=== PATIENT | male | born 1945 | race Caucasian/White ===

== ENCOUNTER → 2018-10-18 13:44 | Outpatient (CLI) | payer MEDICARE, OTHER, SELFPAY ==
--- NOTE | 2018-10-18 | DI.ECHO.S_ITS ---
[facility] +---------+ [facility] +---------+ : : [address] : [address] : : : : [id number] : : : : Phone: [phone] Echocardiogram Report + + :Name: MONICA SANTOS Study Date: 10/18/2018 Height: 70 in : :[facility] Exam Location: [facility] Weight: 179 lb : : Gender: Male BSA: 2.0 m2 : :: 1945 Age: 72 yrs BP: 142/80 mmHg: :Reason For Study: Aortic Valve Replacement : :Ordering Physician: Дмитрий : :David Emmanuel Performed By: Chana Tobias : :Referring: ДМИТРИЙ DORMAN : + + Interpretation Summary The left ventricle is normal in size. Left ventricular ejection fraction is estimated to be 70 +/- 5%. The right ventricle is grossly normal size. The right ventricular systolic function is normal. There is a bioprosthetic aortic valve. The prosthetic aortic valve is well-seated. The prosthetic aortic valve is not well visualized. The peak aortic velocity is 1.9 m/sec. The aortic valve mean gradient is 7 mmHg. The peak aortic velocity on the previous exam was 1.72 m/sec. There is no hemodynamically significant valvular aortic stenosis. The ascending aorta is moderately enlarged. 4.5 cm in diameter. In September 2017 it was 4.8 cm. Procedure: A two-dimensional transthoracic echocardiogram with color flow and Doppler was performed. The apical views were difficult to obtain and are suboptimal in quality. Comparison is made with the echocardiogram of 09/17/2017. The study quality was technically difficult. The patient was in normal sinus rhythm during the exam. Left Ventricle: The left ventricle is normal in size. Left ventricular wall thickness is mildly increased. Proximal septal thickening is noted. There is no echo evidence for significant left ventricular outflow tract obstruction. Left ventricular ejection fraction is estimated to be 70 +/- 5%. Septal motion is consistent with post-operative state. MV E/A: 1.0 Med Peak E' John: 6.8 cm/sec E/E' med: 12.0. Right Ventricle: The right ventricle is grossly normal size. The right ventricular systolic function is normal. Atria: Both atria are normal in size. Both atria have remained unchanged in size since the prior echo exam. The interatrial septum is intact with no evidence for an atrial septal defect. Mitral Valve: The mitral valve leaflets are mildly calcified. There is mild mitral annular calcification. There is trace mitral regurgitation. Aortic Valve: There is a bioprosthetic aortic valve. The prosthetic aortic valve is well-seated. The prosthetic aortic valve is not well visualized. The peak aortic velocity is 1.9 m/sec. The aortic valve mean gradient is 7 mmHg. The peak aortic velocity on the previous exam was 1.72 m/sec. There is no hemodynamically significant valvular aortic stenosis. There is trace aortic regurgitation. Compared to the prior echo study, there has been no change in the severity of aortic regurgitation. Tricuspid Valve: The tricuspid valve is not well visualized, but is grossly normal. The right ventricular systolic pressure is estimated to be at least 23 mmHg based on an estimated right atrial pressure of 3 mm Hg. There is trace tricuspid regurgitation. There has been no significant change since the previous study. Pulmonic Valve: The pulmonic valve is not well seen, but is grossly normal. There is trace pulmonic regurgitation. Great Vessels: The ascending aorta is moderately enlarged. The IVC is of normal diameter and collapses greater than 50% with a sniff. This suggests a low right atrial pressure of 3 mm Hg. Pericardium/ Pleura There is an anterior echo-free space consistent with a fat pad. There is no pericardial effusion. There is no pleural effusion. MMode/2D Measurements & Calculations LVIDd: 5.2 cm LVOT diam: 2.3 cm LVIDs: 2.5 cm asc Aorta Diam: 4.5 cm FS: 52.6 % IVSd: 1.2 cm LVPWd: 1.2 cm LV chauhan. diameter/BSA (cm/m^2): 2.6 LV sys. diameter/BSA (cm/m^2): 1.2 LA A2 area: 18.4 cm2 RA long axis: 4.6 cm LA A4 area: 18.0 cm2 RA area: 12.4 cm2 LA length (vol): 4.8 cm RA vol: 28.5 ml LA vol: 58.6 ml RA : 14.3 ml/m2 LA vol index: 29.4 ml/m2 TAPSE: 2.1 cm Doppler Measurements & Calculations Ao V2 max: 193.7 cm/sec LVOT Max John: 68.5 cm/sec Ao V2 mean: 123.7 cm/sec LV V1 max P.9 mmHg Ao max P.0 mmHg LV V1 VTI: 15.0 cm Ao mean P.1 mmHg GUANAKITO(I,D): 1.8 cm2 Ao V2 VTI: 35.7 cm GUANAKITO(V,D): 1.5 cm2 sev ratio: 0.42 GUANAKITO indexed to BSA (cm^2/m^2): 0.89 MV E max john: 82.1 cm/sec TR max john: 225.0 cm/sec MV A max john: 79.7 cm/sec TR max P.3 mmHg MV E/A: 1.0 PA V2 max: 77.8 cm/sec Med Peak E' John: 6.8 cm/sec PA V2 mean: 51.7 cm/sec E/E' med: 12.0 PA mean P.2 mmHg Lat Peak E' John: 7.1 cm/sec PA pr(Accel): 4.1 mmHg E/E' lat: 11.6 E/e' average: 11.8 MV dec time: 0.24 sec SV(LVOT): 63.4 ml Reading Physician:CAT
== END ==
PROVIDERS: Visit Provider Internal Medicine Cardiovascular Disease
DX: I77.810 Thoracic aortic ectasia (principal); Z95.2 Presence of prosthetic heart valve
CPT/HCPCS: 93306

== ENCOUNTER → 2018-11-28 09:39 | Outpatient (CLI) | payer MEDICARE, OTHER, SELFPAY ==
--- NOTE | 2018-11-28 | DI.US.S_ITS ---
PROCEDURE: US ABDOMEN COMPLETE INDICATIONS: ELEVATED LFT'S TECHNIQUE: Real-time scanning was performed of the abdominal and retroperitoneal organs, with image documentation. COMPARISON: None. FINDINGS: Liver: Liver is diffusely increased in echogenicity. No focal hepatic abnormalities identified. Normal hepatic size. Gallbladder: No gallstones identified. Normal gallbladder wall. No pericholecystic fluid. Negative sonographic Kaur sign. Biliary ducts: Intrahepatic bile ducts are non-dilated. Extrahepatic bile duct caliber measures 4.1 mm. Normal is 6-7 mm or less in diameter, or 10 mm or less post-cholecystectomy. Pancreas: Visualized portions of the pancreas are sonographically normal. Spleen: Spleen is normal in size and homogeneous in echotexture. Kidneys: Kidneys are normal in size and echotexture. Right kidney measures 12.4 cm long; left kidney measures 11.3 cm long. No hydronephrosis or nephrolithiasis. No solid masses. Left renal inferior pole cyst measuring 3.5 cm. Aorta: Visualized aorta is normal in caliber at less than 3 cm. Iliacs: Proximal common iliac arteries are normal in caliber at less than 2.5 cm. IVC: Intrahepatic inferior vena cava is patent. Miscellaneous: No free abdominal fluid. IMPRESSION: Increased hepatic echogenicity noted possibly related to hepatic steatosis but other sources of hepatocellular disease cannot be excluded. Recommend clinical correlation. Dictated by: Castillo GEORGES Interpreted: Kali Gomez MD on 11/28/2018 at 10:59 Approved by: Kali Gomez M.D. on 11/28/2018 at 14:19
[2018-11-28 11:40] LABS: Alanine Aminotransferase 70 IU/L (21-72); Albumin 4.3 g/dL (3.5-5.0); Albumin Globulin Ratio 1.6 (1.0-2.8); Alkaline Phosphatase 100 U/L (38-126); Aspartate Aminotransferase 58 IU/L (17-59); Bilirubin Total 0.6 mg/dL (0.2-1.3); Bilirubin Unconjugated 0.4 mg/dL (0.0-1.1); Globulin 2.7 g/dL (1.7-4.1); HEMOLYSIS < 15 (0-50)
== END ==
PROVIDERS: PCP Internal Medicine; Visit Provider Internal Medicine
DX: R94.5 Abnormal results of liver function studies (principal)
CPT/HCPCS: 36415; 76700; 80076

== ENCOUNTER 2018-12-21 11:32 | Day surgery (SDC) | payer MEDICARE, OTHER, SELFPAY ==
[2018-12-21] VITALS (8 sets, daily range): BP systolic 98–142; BP diastolic 56–81; PULSE 65–86; RESP 9–16; TEMP 36.4–36.5; O2SAT 93–99; BMI 26.1
--- NOTE | 2018-12-21 | PATH_ITS ---
[facility] Accession Number: [id number] . 01 Material submitted: . PART A: ASCENDING COLON POLYP X2 PART B: TRANSVERSE COLON POLYP PART C: SIGMOID COLON POLYP . 02 Diagnosis: A. Ascending Colon, Polyps x2, Biopsies: Tubular adenoma in one of two fragments. . B. Transverse Colon, Polyp, Biopsy: Tubular adenoma. . C. Sigmoid Colon, Polyp, Biopsy: Tubular adenoma. MRV/12/22/2018 . 02 Electronically signed: . Eli Briseno MD, Pathologist NPI- [id number] . 01 Gross description: . Received three formalin-filled containers, each labeled with the patient's name: . A. In a container labeled ascending colon polyp, the specimen consists of two 0.2-0.3 cm portions of tissue, entirely submitted in cassette A. B. In a container labeled transverse colon polyp, the specimen consists of four 0.2-0.3 cm portions of tissue, entirely submitted in cassette B. C. In a container labeled sigmoid colon polyp, the specimen consists of a 0.7 cm portion of tissue, entirely submitted in cassette C. ([id number]) /FRR . 02 Pathologist provided ICD-10: D12.2, D12.3, D12.5 . 02 CPT . 424518, 753539, 463183 Performed at: 01 [facility] [address] [facility], [place], [place] [id number] MD Casper Pedraza MD Phone: [phone] Performed at: 02 [facility] [address] [place], [place] [id number] MD Eli Briseno MD Phone: [phone]
--- NOTE | 2018-12-21 12:48 | PM.HP.1 ---
History of Present Illness Chief complaint: [id number] SCREENING COLONOSCOPY Patient History Social History household members: spouse Family & Social History Social History: household members spouse Meds Home Medications Medication Instructions Recorded Confirmed Type Lisinopril/HCTZ (PRINZIDE 07/22.5) 1 tab PO QDAY #0 tab 07/05/13 12/21/18 History atorvastatin [Lipitor] 40 mg PO HS #0 tab 07/05/13 12/21/18 History metoprolol succinate [Toprol XL] 50 mg PO QDAY #0 tab 07/05/13 12/21/18 History aspirin [Aspir-81] 81 mg PO DAILY 12/21/18 12/21/18 History Allergies Allergy/AdvReac Type Severity Reaction Status Date / Time Penicillins Allergy Intermediate HIVES Verified 12/21/18 12:14 Review of Systems Review of Systems All systems reviewed & are unremarkable except as noted in HPI and below Exam Vital Signs (past 8 hours): - 12/21/18 12:17 Temperature 97.7 F Pulse Rate 80 Respiratory Rate 16 Blood Pressure 133/81 Pulse Oximetry 97 Oxygen Delivery Method Room Air Narrative Exam Narrative: Awake alert oriented x3, pupils equal round reactive to light, lungs clear, heart regular rate rhythm, abdomen soft nontender nondistended, no lower extremity edema Assessment & Plan Assessment & Plan narrative: History of colon polyps screening colonoscopy
[2018-12-21] MEDS: SODIUM CHLORIDE 0.9% 1,000 ML 200 ML IV (12:51)
[2018-12-21] MEDS: MIDAZOLAM 5 MG/5 ML VIAL IV (13:49)
[2018-12-21] MEDS: fentaNYL 250 MCG/5 ML INJ IV (13:49)
--- NOTE | 2018-12-21 13:58 | PM.OP.ENDO ---
Operative Date/Time/Diagnoses Date of procedure: 12/21/18 Procedure & Clinicians Study performed: Colonoscopy with biopsy and snare polypectomy Moderate conscious sedation was administered by the endoscopy nurse and supervised by the endoscopist. The following parameters were monitored: Oxygen saturation, heart rate, blood pressure, and response to care. Sedation: 4 mg midazolam, 100 mcg fentanyl Indications: Colon cancer screening Procedure Notes Procedure in detail: Prior to the procedure, history and physical was performed, and patient medications and allergies were reviewed. Preprocedure nursing history and assessment was reviewed. Patient identification and proposed procedure were verified by the physician and nurse in the procedure room. The physical status of the patient was reassessed after the procedure. After informed consent was obtained including risks, benefits, and alternatives, the scope was passed under direct vision. Throughout the procedure, the patient's blood pressure, pulse, and oxygen saturations were monitored continuously. The colonoscope was introduced through the anus and advanced to the cecum as identified by the appendiceal orifice and ileocecal valve. The patient tolerated the procedure well. Bowel prep was deemed adequate to detect polyps greater than 5 mm. AMBER and perianal examinations were unremarkable. Retroflexion in the rectum revealed grade 2 internal hemorrhoids Many medium mouth diverticula noted in the sigmoid colon Two 3 mm sessile polyps removed from the ascending colon and retrieved with a Jumbo biopsy forceps A 4 mm sessile polyp removed from the transverse colon in piecemeal and retrieved with the Jumbo biopsy forceps A 5 mm sessile polyp removed from the sigmoid colon with cold snare Impression: Internal hemorrhoids Sigmoid colon diverticulosis Four polyps ranging in size from 3 to 5 mm removed from the sigmoid, transverse, and ascending colon Sedation minutes: 20 Complications: other (EBL minimal. No complications) Plan for aftercare: Follow-up pathology results Repeat colon at a date to be determined based on pathology results High-fiber diet Resume home medications Discharge home with escort
--- NOTE | 2018-12-21 14:15 | SUR.PHASEI ---
HOB elevated, slightly dizzy, states that he's tolerating it waking up. Juice given.
--- NOTE | 2018-12-21 14:28 | SUR.PHASEI ---
1424 To opd, bed down and locked, report given, Awake/drowsy, oriented.
== END 2018-12-21 14:50 | disposition home or self-care (01) ==
PROVIDERS: PCP Internal Medicine; Visit Provider Internal Medicine
PROC: 0DJD8ZZ Inspection of Lower Intestinal Tract, Via Natural or Artificial Opening Endoscopic (ICD-10-PCS; CPT 45378; principal; 2018-12-21 12:30)
DX: Z12.11 Encounter for screening for malignant neoplasm of colon (principal); K57.30 Diverticulosis of large intestine without perforation or abscess without bleeding; K64.1 Second degree hemorrhoids; D12.2 Benign neoplasm of ascending colon; D12.3 Benign neoplasm of transverse colon; D12.5 Benign neoplasm of sigmoid colon
CPT/HCPCS: 45385; 45380; 88305; J2250; J3010

== ENCOUNTER → 2019-08-04 15:39 | Outpatient (CLI) | payer MEDICARE, OTHER, SELFPAY ==
[2019-08-04 15:53] LABS: WBC Urine None Seen (0-5/HPF)
[2019-08-04 16:06] LABS: Appearance Urine UA CLOUDY; Bilirubin Urine UA NEGATIVE (NEGATIVE); Color Urine UA YELLOW; Glucose Urine UA NEGATIVE (Negative); Ketones Urine UA NEGATIVE (NEGATIVE); Leukocyte Esterase Urine UA NEGATIVE (NEGATIVE); Nitrite Urine UA NEGATIVE (Negative); Occult Blood Urine UA TRACE-INTACT (Negative); Protein Urine UA NEGATIVE (Negative); Urobilinogen Urine UA 0.2 E.U./dL (0.2)
[2019-08-04 16:16] LABS: Amorphous Sediment Urine 1+; Bacteria Urine Moderate (10-30); Culture Indicated Urine Cult Not Indicated; RBC Urine 0-1/HPF (0-5/HPF)
[2019-08-04 17:27] LABS: Prostate Specific Antigen Scrn 5.28 ng/mL (0.1-4.0)
== END ==
PROVIDERS: PCP Internal Medicine; Visit Provider Internal Medicine
DX: Z12.5 Encounter for screening for malignant neoplasm of prostate (principal); R39.198 Other difficulties with micturition
CPT/HCPCS: 36415; 81001; G0103

== ENCOUNTER 2019-08-17 01:45 | Emergency (ER) | payer MEDICARE, OTHER, SELFPAY ==
--- NOTE | 2019-08-17 01:47 | ED_ITS ---
HPI - General Adult General Chief complaint: Urogenital-Male Stated complaint: thinks he is passing a kidney stone Time Seen by Provider: 08/17/19 01:46 Source: patient Mode of arrival: Family Vehicle Limitations: no limitations History of Present Illness HPI narrative: 73-year-old male here for evaluation of left sided flank pain radiating around to his left abdomen. Patient states that it started when it woke him up from sleep just prior to arrival here in the emergency department. Patient states that he had a kidney stone approximately 25 years ago and this feels similar to that however the prior kidney stone was on his right. No vomiting. He states that this time it is not as bad as the last time he had the stone. Has had some urinary hesitancy and frequency. No pain with urination. No change in bowel habits. No fevers. Related Data Home Medications Medication Instructions Recorded Confirmed Lisinopril/HCTZ (PRINZIDE 07/22.5) 1 tab PO QDAY #0 tab 07/05/13 12/21/18 atorvastatin [Lipitor] 40 mg PO HS #0 tab 07/05/13 12/21/18 metoprolol succinate [Toprol XL] 50 mg PO QDAY #0 tab 07/05/13 12/21/18 aspirin [Aspir-81] 81 mg PO DAILY 12/21/18 12/21/18 Allergies Allergy/AdvReac Type Severity Reaction Status Date / Time Penicillins Allergy Intermediate HIVES Verified 12/21/18 12:14 Review of Systems Constitutional Constitutional: Denies fever(s) Cardiovascular Cardiovascular: Denies chest pain and Denies dyspnea Respiratory Respiratory: Denies dyspnea Gastrointestinal Gastrointestinal: Denies abdominal pain, Denies nausea and Denies vomiting Genitourinary Genitourinary: Reports flank pain (Left), Reports urinary frequency and Reports urinary hesitancy Musculoskeletal Musculoskeletal: Denies myalgias and Denies arthralgias Integumentary/Breasts Skin/Breast: Denies lesions and Denies rash Neurologic Neurologic: Denies behavioral changes Psychiatric Psychiatric: Denies behavioral changes Hematologic/Lymphatic Hematologic/Lymphatic: Denies easy bleeding and Denies easy bruising Patient History Medical History Hypertension (Acute) Social History household members: spouse Smoking Status: Former smoker Exam Initial Vital Signs Initial Vital Signs: Vital Signs Temperature 98.5 F 08/17/19 01:55 Pulse Rate 71 08/17/19 01:55 Respiratory Rate 16 08/17/19 01:55 Blood Pressure 147/74 H 08/17/19 01:55 Pulse Oximetry 97 08/17/19 01:55 Const General: cooperative and comfortable Orientation: alert and awake HENMT Head: normal to inspection and normocephalic Resp Effort & Inspection: normal respiratory effort Auscultation: clear to auscultation bilaterally Cardio Rate: regular rate Rhythm: regular rhythm GI Inspection: non-distended Palpation: soft and No firm Skin Lesions: no lesions Rashes: no rashes Neuro General: alert and awake Cognition: normal cognition Speech: speech normal Extrem Other: Right [id number] amputation Psych Appearance: grossly normal and well kempt Course Orders Ordered: ED Orders 08/17/19 01:50 Basic Metabolic Panel Stat Complete Blood Count AUTO DIFF Stat 08/17/19 02:11 CT kidney ureter bladder (KUB) Stat 08/17/19 03:50 Lactate (Lactic Acid) Stat Discontinued Medications Hydromorphone HCl (Dilaudid) 1 mg IV NOW ONE Stop: 08/17/19 02:16 Last Admin: 08/17/19 02:19 Dose: 1 mg Documented by: OSCAR Lidocaine HCl 5.9 ml/ Sodium (Chloride) 55.9 mls @ 335.4 mls/hr IV NOW ONE Stop: 08/17/19 02:11 Last Infusion: 08/17/19 02:55 Dose: 0 mls/hr Documented by: Admin: 08/17/19 02:20 Dose: 335.4 mls/hr Documented by: OSCAR Ketorolac Tromethamine (Toradol) 30 mg IV NOW ONE Stop: 08/17/19 02:11 Last Admin: 08/17/19 02:20 Dose: 30 mg Documented by: OSCAR Ondansetron HCl (Zofran) 4 mg IV NOW ONE Stop: 08/17/19 02:16 Last Admin: 08/17/19 02:20 Dose: 4 mg Documented by: OSCAR Vital Signs Vital signs: Vital Signs - 8 hr 08/17/19 01:55 08/17/19 02:40 Temperature 98.5 F Pulse Rate 71 62 Respiratory Rate 16 13 Blood Pressure 147/74 H Blood Pressure [Right Arm] 132/52 L Pulse Oximetry 97 93 Medical Decision Making Lab Data Lab results reviewed: Yes I reviewed the patient's lab results. Result diagrams: 08/17/19 01:50 08/17/19 01:50 Labs: Lab Results 08/17/19 08/17/19 08/17/19 Range/Units 01:50 01:50 03:50 WBC 9.5 (4.5-11.0) X10^3/uL RBC 5.05 (4.5-5.9) X10^6/uL Hgb 16.6 (13.5-17.5) g/dL Hct 47.2 (41-53) % MCV 93.5 (80-100) fL MCH 32.8 (26-34) PG MCHC 35.1 (30-36) % RDW 14.0 (11.6-14.8) % Plt Count 185 (150-400) X10^3/uL Neut % (Auto) 46.8 L (50-75) % Lymph % (Auto) 42.3 H (25-40) % Hartley % (Auto) 7.2 (3-14) % Eos % (Auto) 3.1 (2-4) % Baso % (Auto) 0.6 (0-2) % Neut # (Auto) 4500 (9473-6490) /uL Lymph # (Auto) 4000 (8750-5605) /uL Hartley # (Auto) 700 (0-900) /uL Eos # (Auto) 300 (0-450) /uL Baso # (Auto) 100 (0-100) /uL Sodium 138 (137-145) mmol/L Potassium 3.6 (3.4-5.1) mmol/L Chloride 97 L (98-107) mmol/L Carbon Dioxide 27 (22-32) mmol/L BUN 19 (9-20) mg/dL Creatinine 0.90 (0.66-1.25) mg/dL Estimated GFR > 60.0 (>60) mL/min BUN/Creatinine Ratio 21.1 (6-22) Glucose 147 H (80-110) mg/dL Lactate 2.0 (0.7-2.1) mmol/L Calcium 10.2 (8.4-10.2) mg/dL Imaging Data CT scan - abdomen: Radiologist's impression: Focal a hypodense to sigmoid colon with characteristics worrisome for early/developing colitis, possibly infectious versus inflammatory versus ischemic etiology. No evidence for perforation or obstruction Nonobstructing renal pelvic nephrolithiasis as described Intrapulmonary noncalcified reticular nodularity of unclear etiology and chronicity MDM Narrative Medical decision making narrative: Patient's history and physical exam is consistent with a kidney stone. He arrived with relatively minor symptoms however developed quite a bit of discomfort and nausea and vomiting during the exam. He was given medications for this would seems to take the pain completely away. We did discuss holding on a CT scan and checking a urine and kidney func tion given the fact that his symptoms are fairly consistent with a kidney stone. After this discussion and decision was made to perform a CT scan. The CT scan surprisingly did not show a specific left-sided ureteral stone. Did show potential problems with the sigmoid colon however this does not fit this patient's clinical presentation. The absence of the stone could be secondary to the fact that the patient is already passed at verses a stone that is small cannot be seen on the scan. Patient was sent home with return precautions and symptom treatment. He expressed understanding and agreement with plan Discharge Plan Departure Patient Disposition: Home Clinical Impression: Renal colic on left side Instructions: DI for Kidney Stones Activity Restrictions/Additional Instructions: Take the medication as needed as directed. Continue the rest of your medications as directed. Contact your primary provider for follow-up. Return to the emergency department for any new or worsening symptoms. Keep all of your scheduled medical appointments Prescriptions: No Action Lisinopril/HCTZ (PRINZIDE 07/22.5) 1 tab PO QDAY Qty: 0 RF: 0 atorvastatin [Lipitor] 40 MG tablet 40 mg PO HS Qty: 0 RF: 0 metoprolol succinate [Toprol XL] 50 MG tablet extended release 24 hr 50 mg PO QDAY Qty: 0 RF: 0 aspirin [Aspir-81] 81 mg Tablet,Delayed Release (Dr/Ec) 81 mg PO DAILY RF: 0 Referrals: Joaquim Zarate MD [Primary Care Provider] -
[2019-08-17 01:55] VITALS: BP 147/74; PULSE 71; RESP 16; TEMP 36.9; O2SAT 97; BMI 24.7
[2019-08-17 02:09] LABS: Add Manual Diff / Slide Review NO; Basophils Absolute Auto 100 /uL (0-100); Basophils Percent Auto 0.6 % (0-2); Eosinophils Absolute Auto 300 /uL (0-450); Eosinophils Percent Auto 3.1 % (2-4); Hematocrit 47.2 % (41-53); Hemoglobin 16.6 g/dL (13.5-17.5); Lymphocytes Absolute Auto 4000 /uL (1100-4500); Lymphocytes Percent Auto 42.3 % (25-40); Mean Corpuscular HGB Conc 35.1 % (30-36); Mean Corpuscular Hemoglobin 32.8 PG (26-34); Mean Corpuscular Volume 93.5 fL (80-100); Monocytes Absolute Auto 700 /uL (0-900); Monocytes Percent Auto 7.2 % (3-14); Neutrophils Absolute Auto 4500 /uL (1500-7000); Neutrophils Percent Auto 46.8 % (50-75); Platelet Count 185 X10^3/uL (150-400); Red Blood Cell Count 5.05 X10^6/uL (4.5-5.9); White Blood Cell Count 9.5 X10^3/uL (4.5-11.0)
--- NOTE | 2019-08-17 02:11 | DI.CT.S_ITS ---
PROCEDURE: CT KIDNEY URETER BLADDER (KUB) INDICATIONS: Left sided stone TECHNIQUE: Noncontrast 5 mm thick sections acquired from the diaphragms to the symphysis. 5 mm thick coronal and sagittal reformats were then performed. For radiation dose reduction, the following was used: automated exposure control, adjustment of mA and/or kV according to patient size. COMPARISON: None. FINDINGS: Image quality: Excellent. Lung bases: 4 mm groundglass nodule at the right lateral lower lobe. Lung bases are otherwise clear. Heart size is normal. Valvuloplasty changes are present. Urinary system: Both kidneys are normal in size. 3.3 cm left cortical cyst. A 2 mm nonobstructing right midpole calculus. No left intrarenal calculi. No hydronephrosis or perinephric fat stranding. Both ureters appear non-dilated throughout their expected courses. Punctate, 2 mm calcification at the left ureterovesicular junction. Bladder wall thickness is normal; no calcified bladder stones. Other solid organs: Liver is normal in size. Gallbladder is normal. Pancreas is normal in contours. Spleen is normal in size. 1.9 cm fat containing right adrenal nodule. No left adrenal nodule. Peritoneum and bowel: Unenhanced bowel loops demonstrate normal wall thickness and caliber. Moderate diverticula in the sigmoid colon with questionable adjacent fat stranding, not appreciably changed compared to the prior study. No free fluid or air. Nodes and vessels: No retroperitoneal or mesenteric adenopathy by size criteria. Aorta and inferior vena cava are normal in caliber. Heavy abdominal aortic calcification and common iliac artery calcification. Abdominal wall: No ventral hernias. Pelvis: No free pelvic fluid. A small fat containing left inguinal hernia. High riding left testicle. Tiny fat-containing right inguinal hernia.. Bones: No suspicious bony lesions. No vertebral body compression fractures. IMPRESSION: 1. 2 mm calcification at the left ureterovesicular junction. 2. No changes of significant obstructive uropathy. 3. 2 mm nonobstructing right intrarenal calcification. 4. Sigmoid diverticulosis with questionable adjacent fat stranding. Early diverticulitis is not excluded. 5. Heavy aorto biiliac atherosclerotic calcification. 6. 1.9 cm right adrenal adenoma. 7. 4 mm right lower lobe lung nodule. Followup chest CT in 6-12 months based on the patient risk factors is recommended. 8. Discrepancy between the final and preliminary report discussed with Dr. Rogel in the emergency room at 829 hours. Dictated by: Daylin Bellamy M.D. on 08/17/2019 at 8:12 Approved by: Daylin Bellamy M.D. on 08/17/2019 at 8:31
[2019-08-17 02:15] LABS: BUN Creatinine Ratio 21.1 (6-22); Blood Urea Nitrogen 19 mg/dL (9-20); Calcium 10.2 mg/dL (8.4-10.2); Carbon Dioxide 27 mmol/L (22-32); Chloride 97 mmol/L (98-107); Estimated Glomerular Filt Rate > 60.0 mL/min (>60); Glucose 147 mg/dL (80-110); HEMOLYSIS 26 (0-50); Potassium 3.6 mmol/L (3.4-5.1); Sodium 138 mmol/L (137-145)
[2019-08-17] MEDS: HYDROMORPHONE 1 MG INJ IV (02:19)
[2019-08-17] MEDS: LIDOCAINE 2% 5.9 ML in SODIUM CHLORIDE 0.9% 50 ML 335.4 ML IV (02:20)
[2019-08-17] MEDS: KETOROLAC 60 MG/2 ML VIAL 30 MG IV (02:20)
[2019-08-17] MEDS: ONDANSETRON 4 MG/2 ML INJ IV (02:20)
[2019-08-17 02:40] VITALS: BP 132/52; PULSE 62; RESP 13; O2SAT 93
[2019-08-17] MEDS: TRAMADOL 50 MG PREPACK 1 BOTTLE MISC (06:23)
[2019-08-17] MEDS: ONDANSETRON 4 MG ODT PREPACK 1 BOTTLE MISC (06:23)
[2019-08-17 06:30] VITALS: BP 128/81; PULSE 61; RESP 13; O2SAT 95
== END 2019-08-17 06:30 | disposition home or self-care (01) ==
PROVIDERS: Emergency Provider Emergency Medicine; PCP Internal Medicine
DX: N20.0 Calculus of kidney (principal); Z87.442 Personal history of urinary calculi; Z79.82 Long term (current) use of aspirin
CPT/HCPCS: 36415; 51798; 74176; 80048; 81003; 83605; 85025; 96365; 96375; 99283; 99284; J1170; J1885; J2405

== ENCOUNTER → 2019-12-22 11:54 | Outpatient (CLI) | payer MEDICARE, OTHER, SELFPAY ==
--- NOTE | 2019-12-22 | DI.ECHO.S_ITS ---
[place] [facility]---------+ [facility] +---------+ : : [address] : : : [address] : : : : [phone] : : : : Phone: [phone]+ Echocardiogram Report + + :Name: MONICA SANTOS Study Date: 12/22/2019 Height: 70 in : :[facility] Location: [facility] Weight: 183 lb : : Gender: Male BSA: 2.0 m2 : :: 1945 Age: 74 yrs BP: 140/80 mmHg: :Reason For Study: Aortic valve replacement - bioprosthetic : :Ordering Physician: : :Blayne Hernandez M.D. Performed By: Akilah Page : + + Interpretation Summary The study quality was technically difficult. Left ventricular ejection fraction is estimated to be 55%. There are no obvious focal wall motion abnormalities noted but poor endocardial definition reduces the sensitivity for the detection of such. There is a bioprosthetic aortic valve. The gradients through the prosthetic aortic valve are within the normal range for this type of valve. There is trace perivalvular regurgitation around the prosthetic aortic valve. The peak aortic velocity is 1.6 m/sec. The ascending aorta is moderately enlarged.(4.9cm) Procedure: A two-dimensional transthoracic echocardiogram with color flow and Doppler was performed. Comparison is made with the echocardiogram of 10/18/2018. The study quality was technically difficult. The patient was in normal sinus rhythm during the exam. Left Ventricle: The left ventricle is normal in size, wall thickness, and systolic function without any focal wall motion abnormalities. Left ventricular ejection fraction is estimated to be 55%. There are no obvious focal wall motion abnormalities noted but poor endocardial definition reduces the sensitivity for the detection of such. Right Ventricle: The right ventricle is normal in size and function. Atria: Both atria are normal in size. There is no Doppler evidence for an interatrial shunt. The thickening of interatrial septum suggests lipomatous hypertrophy. Mitral Valve: The mitral valve leaflets are mildly calcified. There is mild mitral annular calcification. There is trace mitral regurgitation. Aortic Valve: The aortic valve is not well visualized. There is a bioprosthetic aortic valve. The gradients through the prosthetic aortic valve are within the normal range for this type of valve. The prosthetic aortic valve is well-seated. There is trace perivalvular regurgitation around the prosthetic aortic valve. The peak aortic velocity is 1.6 m/sec. The peak aortic velocity on the previous exam was 1.9 m/sec. Tricuspid Valve: The tricuspid valve is normal in structure and function. There is a trace or physiologic amount of tricuspid regurgitation. Pulmonary artery pressures cannot be estimated because of the lack of a measurable TR jet velocity. Pulmonic Valve: The pulmonic valve is not well visualized. Great Vessels: The aortic root is not well visualized but is probably normal size. The ascending aorta is moderately enlarged. The pulmonary is not well visualized. The IVC is of normal diameter and collapses greater than 50% with a sniff. This suggests a low right atrial pressure of 3 mm Hg. Pericardium/ Pleura There is no pericardial effusion. There is no pleural effusion. MMode/2D Measurements & Calculations LVIDd: 4.9 cm LVOT diam: 2.3 cm LVIDs: 3.7 cm Ao root diam: 4.1 cm FS: 23.0 % asc Aorta Diam: 4.9 cm IVSd: 0.86 cm LVPWd: 0.82 cm LV chauhan. diameter/BSA (cm/m^2): 2.4 LV sys. diameter/BSA (cm/m^2): 1.9 LA A2 area: 20.4 cm2 RA long axis: 4.7 cm LA A4 area: 18.9 cm2 RA area: 18.5 cm2 LA length (vol): 5.5 cm RA vol: 61.7 ml LA vol: 59.7 ml RA : 30.7 ml/m2 LA vol index: 29.7 ml/m2 IVC diam: 1.9 cm RVD1 (basal): 3.5 cm RVD2 (mid): 3.2 cm Doppler Measurements & Calculations Ao V2 max: 162.4 cm/sec LVOT Max John: 83.4 cm/sec Ao V2 mean: 99.5 cm/sec LV V1 max P.8 mmHg Ao max P.5 mmHg LV V1 VTI: 18.6 cm Ao mean P.6 mmHg GUANAKITO(I,D): 2.5 cm2 Ao V2 VTI: 29.8 cm GUANAKITO(V,D): 2.1 cm2 sev ratio: 0.62 GUANAKITO indexed to BSA (cm^2/m^2): 1.2 MV E max john: 73.8 cm/sec PA V2 max: 64.9 cm/sec MV A max john: 97.2 cm/sec PA V2 mean: 47.0 cm/sec MV E/A: 0.76 PA mean P.97 mmHg Med Peak E' John: 7.1 cm/sec PA Accel Time: 0.15 sec E/E' med: 10.5 Lat Peak E' John: 6.7 cm/sec E/E' lat: 11.0 E/e' average: 10.7 MV dec time: 0.26 sec MV P1/2t: 78.0 msec MV P1/2t max john: 75.1 cm/sec SV(LVOT): 74.5 ml MVA(P1/2t): 2.8 cm2 Reading Physician:03:48 PM
== END ==
PROVIDERS: PCP Internal Medicine; Referring Provider Internal Medicine; Visit Provider Internal Medicine Cardiovascular Disease
DX: I77.89 Other specified disorders of arteries and arterioles (principal); Z95.2 Presence of prosthetic heart valve
CPT/HCPCS: 93306

== ENCOUNTER → 2020-02-16 08:50 | Outpatient (CLI) | payer MEDICARE, OTHER, SELFPAY ==
[2020-02-16 09:34] LABS: Alanine Aminotransferase 60 IU/L (<50); Albumin 4.4 g/dL (3.5-5.0); Albumin Globulin Ratio 1.5 (1.0-2.8); Alkaline Phosphatase 107 U/L (38-126); Aspartate Aminotransferase 55 IU/L (17-59); BUN Creatinine Ratio 26.7 (6-22); Bilirubin Total 0.7 mg/dL (0.2-1.3); Blood Urea Nitrogen 20 mg/dL (9-20); Calcium 9.8 mg/dL (8.4-10.2); Carbon Dioxide 29 mmol/L (22-32); Chloride 102 mmol/L (98-107); Cholesterol 153 mg/dL (140-199); Estimated Glomerular Filt Rate > 60.0 mL/min (>60); Glucose 136 mg/dL (80-110); HDL Cholesterol 35 mg/dL (40-60); HEMOLYSIS < 15 (0-50); LDL Cholesterol Calculated 68 mg/dL (<100); Potassium 4.1 mmol/L (3.4-5.1); Sodium 138 mmol/L (137-145); Total Protein 7.4 g/dL (6.3-8.2); Triglycerides 252 mg/dL (35-150)
[2020-02-16 09:40] LABS: Add Manual Diff / Slide Review NO; Basophils Absolute Auto 0 /uL (0-100); Basophils Percent Auto 0.6 % (0-2); Eosinophils Absolute Auto 200 /uL (0-450); Eosinophils Percent Auto 3.5 % (2-4); Hematocrit 44.8 % (41-53); Hemoglobin 15.6 g/dL (13.5-17.5); Lymphocytes Absolute Auto 2900 /uL (1100-4500); Mean Corpuscular HGB Conc 34.8 % (30-36); Mean Corpuscular Hemoglobin 32.7 PG (26-34); Monocytes Absolute Auto 600 /uL (0-900); Monocytes Percent Auto 9.6 % (3-14); Neutrophils Absolute Auto 2900 /uL (1500-7000); Neutrophils Percent Auto 43.3 % (50-75); Platelet Count 165 X10^3/uL (150-400); Red Blood Cell Count 4.77 X10^6/uL (4.5-5.9); White Blood Cell Count 6.8 X10^3/uL (4.5-11.0)
[2020-02-16 10:04] LABS: Prostate Specific Antigen 5.04 ng/mL (0.10-4.00)
== END ==
PROVIDERS: PCP Internal Medicine; Referring Provider Internal Medicine; Visit Provider Internal Medicine
DX: I10 Essential (primary) hypertension (principal); I70.209 Unspecified atherosclerosis of native arteries of extremities, unspecified extremity; E78.00 Pure hypercholesterolemia, unspecified; R97.20 Elevated prostate specific antigen [PSA]
CPT/HCPCS: 36415; 80053; 80061; 84153; 85025

== ENCOUNTER → 2020-09-11 10:34 | Outpatient (CLI) | payer MEDICARE, OTHER, SELFPAY ==
--- NOTE | 2020-09-11 11:03 | DI.CT.S_ITS ---
PROCEDURE: CT ABDOMEN PELVIS WO/W CON INDICATIONS: Other microscopic hematuria TECHNIQUE: Optional 5 mm thick noncontrast images acquired from the diaphragm to the symphysis pubis. After the administration of intravenous contrast, 5 mm thick images acquired from the diaphragm to the symphysis pubis after a 10-minute delay. 2 mm thick coronal and sagittal reformats were then performed of the kidneys and ureters. For radiation dose reduction, the following was used: automated exposure control, adjustment of mA and/or kV according to patient size. COMPARISON: [facility], CT, CT KIDNEY URETER BLADDER (KUB), 08/17/2019, 2:16. Outside Film, ECH, ECHOCARDIOGRAM COMPLETE, 12/22/2019, 11:59. FINDINGS: Image quality: Excellent. Lung bases: Lung bases are clear except for a 4 mm right lung base nodule previously identified in August of last year, without change. Heart size is normal. Urinary system: Both kidneys are normal in size, without hydronephrosis or nephrolithiasis on pre-contrast images. No perinephric fat stranding. There is normal bilateral renal enhancement. Renal calyces appear normal in morphology when filled with contrast. Opacified portions of both ureters demonstrate normal caliber. Bladder wall thickness is normal. No calcified bladder stones. Other solid organs: Liver is normal in size and enhancement. Gallbladder appears normal . Biliary system is non dilated. Pancreas enhances normally. Spleen is normal in size and enhancement. No adrenal nodules. Peritoneum and bowel: Bowel loops demonstrate normal wall thickness and caliber. No free fluid or air. Nodes and vessels: No retroperitoneal or mesenteric adenopathy by size criteria. Aorta and inferior vena cava are normal in size. Abdominal wall: No ventral hernias. Pelvis: No pathologic free pelvic fluid. No inguinal hernias or adenopathy. Bones: No suspicious bony lesions. No vertebral body compression fractures. IMPRESSION: Source of hematuria is not found. No urinary tract stone or evidence of renal cortical or urothelial neoplasm is seen. There are several scattered water density renal cortical cysts. A 4 mm nonspecific nodule at the right posterolateral lung base is stable over time, from 1 year ago. No follow-up recommended. Dictated by: Kali Gomez M.D. on 09/11/2020 at 11:47 Approved by: Kali Gomez M.D. on 09/11/2020 at 11:56
== END ==
PROVIDERS: PCP Internal Medicine; Referring Provider Internal Medicine; Visit Provider Urology
DX: R31.29 Other microscopic hematuria (principal); N28.1 Cyst of kidney, acquired
CPT/HCPCS: 74178; Q9967

== ENCOUNTER → 2020-11-08 09:57 | Outpatient (CLI) | payer MEDICARE, OTHER, SELFPAY ==
[2020-11-08] MEDS: COVID-19 VACC #1, MRNA(MOD) 100 MCG/0.5 ML VIAL IM (10:06)
== END ==
PROVIDERS: PCP Internal Medicine; Visit Provider Internal Medicine
DX: Z23 Encounter for immunization (principal)
CPT/HCPCS: 0011A; 91301

== ENCOUNTER → 2020-12-06 09:53 | Outpatient (CLI) | payer MEDICARE, OTHER, SELFPAY ==
[2020-12-06] MEDS: COVID-19 VACC #2, MRNA(MOD) 100 MCG/0.5 ML VIAL IM (10:02)
== END ==
PROVIDERS: PCP Internal Medicine; Visit Provider Internal Medicine
DX: Z23 Encounter for immunization (principal)
CPT/HCPCS: 0012A; 91301

== ENCOUNTER → 2021-10-17 13:01 | Outpatient (CLI) | payer MEDICARE, OTHER, SELFPAY ==
--- NOTE | 2021-10-17 | DI.CT.S_ITS ---
PROCEDURE: CT ABDOMEN PELVIS WO/W CON INDICATIONS: Personal history of malignant neoplasm of bladder TECHNIQUE: Optional 5 mm thick noncontrast images acquired from the diaphragm to the symphysis pubis. After the administration of intravenous contrast, 5 mm thick images acquired from the diaphragm to the symphysis pubis after a 10-minute delay. 2 mm thick coronal and sagittal reformats were then performed of the kidneys and ureters. For radiation dose reduction, the following was used: automated exposure control, adjustment of mA and/or kV according to patient size. COMPARISON: [facility], CT, CT ABDOMEN PELVIS WO/W CON, 09/11/2020, 10:57. FINDINGS: Image quality: Excellent. Lung bases: Lung bases are clear. Heart size is normal. Trace hiatal hernia. Urinary system: Both kidneys are normal in size, without hydronephrosis. Punctate right nephrolithiasis, unchanged. Bilateral cortical hypoattenuating lesions are seen measuring up to 3.6 cm, most consistent with cysts. Nonspecific perinephric fat stranding. There is normal bilateral renal enhancement. Renal calyces appear normal in morphology when filled with contrast. Opacified portions of both ureters demonstrate normal caliber. The urinary bladder is not well distended. Gas within the urinary bladder, which may be extra Christian. No calcified bladder stones. Other solid organs: Liver is normal in size and enhancement. Gallbladder is within normal limits . Biliary system is non dilated. Pancreas enhances normally. Spleen is normal in size and enhancement. Persistent 1.2 mm nodule in the medial limb of the left adrenal gland, likely representing an adenoma. Peritoneum and bowel: No intestinal obstruction. Prominent descending/sigmoid diverticulosis with minimal wall thickening of the sigmoid colon, which may reflect chronic change. No free fluid or air. Nodes and vessels: No retroperitoneal or mesenteric adenopathy by size criteria. Aorta and inferior vena cava are normal in size. Prominent calcified atheromatous change of the aorta and branch vessels with high-grade stenosis/occlusion of the aorta bi-iliac segment. Abdominal wall: Trace fat containing periumbilical hernia. Pelvis: No pathologic free pelvic fluid. Fat containing left inguinal hernia. Enlargement of the prostate with mass effect upon the urinary bladder. 4.9 x 5.7 cm fat attenuation lesion in the right gluteus ethel muscle, compatible with intramuscular lipoma. Bones: No suspicious bony lesions. Multifocal degenerative change. No vertebral body compression fractures. IMPRESSION: 1. Mild wall thickening of the urinary bladder, which may be secondary to an enlarged prostate. 2. Gas within the urinary bladder apex, which may be iatrogenic. 3. Prominent descending/sigmoid diverticulosis with minimal wall thickening in the sigmoid colon, which may reflect chronic change. Consider correlation with most recent colonoscopy. Dictated by: Nicolás Grijalva M.D. on 10/17/2021 at 14:31 Approved by: Nicolás Grijalva M.D. on 10/17/2021 at 14:44
== END ==
PROVIDERS: Referring Provider Urology; Visit Provider Urology
DX: Z08 Encounter for follow-up examination after completed treatment for malignant neoplasm (principal); Z85.51 Personal history of malignant neoplasm of bladder; K57.30 Diverticulosis of large intestine without perforation or abscess without bleeding; E27.9 Disorder of adrenal gland, unspecified
CPT/HCPCS: 74178; Q9967

== ENCOUNTER → 2021-12-01 07:38 | Outpatient (CLI) | payer MEDICARE, OTHER, SELFPAY ==
--- NOTE | 2021-12-01 | DI.ECHO.S_ITS ---
[place] +---------+ [facility] +---------+ : : [address] : [address] : : : : [phone] : : : : Phone: [phone] : : [phone]---------+ Echocardiogram Report + + :Name: MONICA SANTOS Study Date: 12/01/2021 Height: 69.5 in: :[facility] ReadingLocation: Weight: 187 lb : : Gender: Male BSA: 2.0 m2 : :: 1945 Age: 76 yrs : :Reason For Study: S/P TAVR : :Ordering Physician: : :PENNY Performed By: Satya Dueñas : :Referring: ДМИТРИЙ HERNANDEZ : + + Interpretation Summary The study quality was technically difficult. The left ventricular ejection fraction is grossly normal. The aortic valve is not well visualized. There is a bioprosthetic aortic valve. The peak aortic velocity is 2 m/sec. The peak aortic velocity on the previous exam was 1.6 m/sec. Procedure: A two-dimensional transthoracic echocardiogram with color flow and Doppler was performed. The study quality was technically difficult. Comparison is made with the echocardiogram of 12/22/2019. A contrast injection of Definity was performed to improve assessment of LV function. Overall very poor acoustic windows. The patient was in normal sinus rhythm during the exam. Left Ventricle: The left ventricle is normal in size. There is mild proximal septal thickening noted. The left ventricular ejection fraction is grossly normal. There is a mild dyssynchronous contraction pattern, consistent with a conduction abnormality. Right Ventricle: The right ventricle is not well visualized. The right ventricle grossly appears normal in size with probable normal systolic function. Atria: The left atrial size is normal. Right atrium not well visualized. The right atrium grossly appears normal in size. Aortic Valve: The aortic valve is not well visualized. There is a bioprosthetic aortic valve. The peak aortic velocity is 2 m/sec. The peak aortic velocity on the previous exam was 1.6 m/sec. The aortic valve mean gradient is 7.5 mmHg. There is trace aortic regurgitation. Tricuspid Valve: The tricuspid valve is not well visualized, but is grossly normal. There is a trace or physiologic amount of tricuspid regurgitation. Pulmonary artery pressures cannot be estimated because of the lack of a measurable TR jet velocity but the IVC suggests a CVP of around 3 mmHg. Pulmonic Valve: The pulmonic valve is not well visualized. Great Vessels: The ascending aorta is moderately enlarged. The aortic arch could not be visualized. The IVC is of normal diameter and collapses greater than 50% with a sniff. This suggests a low right atrial pressure of 3 mm Hg. Pericardium/ Pleura There is no pericardial effusion. There is an anterior echo-free space consistent with a fat pad. There is no pleural effusion. MMode/2D Measurements & Calculations LVIDd: 3.9 cm LVOT diam: 2.1 cm LVIDs: 2.6 cm Ao root diam: 3.6 cm FS: 33.3 % asc Aorta Diam: 4.7 cm IVSd: 1.2 cm LVPWd: 1.1 cm LV chauhan. diameter/BSA (cm/m^2): 1.9 LV sys. diameter/BSA (cm/m^2): 1.3 LA A2 area: 14.3 cm2 RVD1 (basal): 2.5 cm LA A4 area: 17.2 cm2 TAPSE: 1.7 cm LA length (vol): 5.0 cm LA vol: 42.0 ml LA vol index: 20.8 ml/m2 Doppler Measurements & Calculations Ao V2 max: 200.9 cm/sec LVOT Max John: 84.0 cm/sec Ao V2 mean: 129.8 cm/sec LV V1 max P.8 mmHg Ao max P.1 mmHg LV V1 VTI: 20.7 cm Ao mean P.5 mmHg GUANAKITO(I,D): 1.8 cm2 Ao V2 VTI: 39.8 cm GUANAKITO(V,D): 1.4 cm2 sev ratio: 0.52 GUANAKITO indexed to BSA (cm^2/m^2): 0.89 MV E max john: 64.7 cm/sec SV(LVOT): 71.5 ml MV A max john: 97.3 cm/sec MV E/A: 0.67 Med Peak E' John: 4.9 cm/sec E/E' med: 13.1 Lat Peak E' John: 7.2 cm/sec E/E' lat: 9.0 E/e' average: 11.1 MV dec time: 0.34 sec Reading Physician:03:20 PM
== END ==
PROVIDERS: Referring Provider Internal Medicine Cardiovascular Disease; Visit Provider Internal Medicine Cardiovascular Disease
DX: I77.89 Other specified disorders of arteries and arterioles (principal); Z95.2 Presence of prosthetic heart valve
CPT/HCPCS: 93306; Q9957

== ENCOUNTER → 2021-12-12 14:27 | Outpatient (CLI) | payer MEDICARE, OTHER, SELFPAY ==
[2021-12-12 15:01] LABS: COVID19 -Nasal RAPID Negative (Negative)
== END ==
PROVIDERS: Visit Provider Family Medicine Sleep Medicine
DX: Z20.822 Contact with and (suspected) exposure to COVID-19 (principal)
CPT/HCPCS: 87635

== ENCOUNTER 2021-12-15 12:49 | Day surgery (SDC) | payer MEDICARE, OTHER, SELFPAY ==
[2021-12-15] VITALS (7 sets, daily range): BP systolic 104–137; BP diastolic 56–83; PULSE 64–88; RESP 16–18; TEMP 36.2–36.6; O2SAT 95–100; BMI 26.4
--- NOTE | 2021-12-15 | PATH_ITS ---
[facility] Accession Number: [id number] . 01 Material submitted: . colon - TRANSVERSE COLON . 02 Diagnosis: Transverse Colon, Biopsy: Tubular adenoma, two fragments. [facility] 12/17/2021 1102 Local . 02 Electronically signed: . Eli Briseno MD, Pathologist NPI- [id number] . 01 Gross description: . TRANSVERSE COLON: Received in formalin are 2 fragment(s) of walden, soft tissue measuring 0.3 x 0.3 x 0.3 cm to 0.2 x 0.2 x 0.2 cm submitted entirely in 1 cassette(s) /[facility] 12/16/2021 1947 Local . 02 Pathologist provided ICD-10: D12.3 . 02 CPT . 453691 Specimen Comment: A courtesy copy of this report has been sent to [phone], [phone] Specimen Comment: [id number] Performed at: 01 [facility] Cytology [address] [facility], [place], [place] [id number] MD Casper Pedraza MD Phone: [phone] Performed at: 02 [facility] [place] [address] [place], [place] [id number] MD Eli Briseno MD Phone: [phone]
[2021-12-15] MEDS: SODIUM CHLORIDE 0.9% 1,000 ML 84 ML IV (13:26)
--- NOTE | 2021-12-15 13:37 | PM.HP.1 ---
History of Present Illness History of Present Illness Date Patient Seen: 12/15/21 Time Patient Seen: 13:37 Chief complaint: DX COLONOSCOPY W/POSS BX Narrative: Personal history of adenomatous colon polyps. Patient History Medical History Hypertension Family & Social History Social History: household members spouse Tobacco & Substance use: Smoking Status Former smoker alcohol intake current alcohol intake frequency 0-2 drinks per day Substance Use Type marijuana Meds Home Medications and Allergies Home Medications Medication Instructions Recorded Confirmed Type Lisinopril/HCTZ (PRINZIDE 10/12.5) 1 tab PO QDAY #0 tab 07/05/13 12/15/21 History atorvastatin 40 mg tablet (Lipitor) 40 mg PO HS #0 tab 07/05/13 12/15/21 History metoprolol succinate 50 mg 50 mg PO QDAY #0 tab 07/05/13 12/15/21 History tablet,extended release 24 hr (Toprol XL) aspirin 81 mg tablet,delayed 81 mg PO DAILY 12/21/18 12/15/21 History release (Aspir-) Allergies Allergy/AdvReac Type Severity Reaction Status Date / Time Penicillins Allergy Intermediate HIVES Verified 12/21/18 12:14 Review of Systems Review of Systems ROS: Yes All systems reviewed with the patient and are negative except as otherwise documented Exam Vital Signs (past 8 hours): - 12/15/21 13:07 Temperature 97.2 F L Pulse Rate 88 Respiratory Rate 18 Blood Pressure 135/83 Pulse Oximetry 98 Oxygen Delivery Method Room Air Const General: cooperative and comfortable Orientation: alert HENMT Head: normocephalic Ears: external ears normal Nose: external nose normal Face and sinus: normal facial exam Mouth: oral mucosae normal Eyes General: appearance normal, both eyes and all related structures Neck Neck: normal visual inspection Chest Chest: normal inspection of the chest Resp Effort & Inspection: normal respiratory effort Cardio Rate: regular rate GI Inspection: normal to inspection Skin General: no rashes or lesions noted and No jaundice Neuro General: patient alert and moves all extremities Cognition: normal cognition Speech: speech normal Extrem General: no pedal edema Psych Appearance: grossly normal Assessment & Plan Assessment & Plan narrative: 76-year-old male with a personal history of colon polyps. Family history of colon cancer. Colonoscopy is pursued today. Time Spent With Patient Critical Care time: I spent a total of [] minutes of critical care time on this patient's care today; this time is exclusive of procedural time.
--- NOTE | 2021-12-15 13:38 | PM.PREOP ---
Pre-operative Note COVID-19 COVID-19 status: Negative Result date/Date tested (Pos, Neg/Pending): 12/12/21 Criteria for continued procedure: Possibility delay results in more complex future surgery or treatment Interval Note History & Physical reviewed/Exam performed by Physician: Yes Changes to H&P: No ASA Class (for procedural sedation): II
--- NOTE | 2021-12-15 14:30 | PM.OP.COLON ---
Operative Date/Time/Diagnoses Date of procedure: 12/15/21 Time of procedure: 14:30 Pre-op diagnosis: Personal history of colon polyps Post-op diagnosis: same Procedure & Clinicians Study performed: Colonoscopy with hot snare polypectomy Same procedure as scheduled: Yes Indications: Personal history of colon polyps Surgeon: Tye Ellsworth Procedure Notes SCOAP/Timeout: Done Procedure in detail: After the risks and benefits were explained, written and verbal informed consent was obtained. The patient was brought into the procedure room and placed into the left lateral decubitus position. Please see nurse concrete conveyor operator notes for sedation details. Digital rectal examination was accomplished. The scope was introduced into the patient and advanced under direct visualization to the cecum as identified by the appendiceal orifice and ileocecal valve. The scope was slowly withdrawn to carefully examine the mucosa for any defects or lesions. Comprehensive imaging was accomplished throughout the rectum including the dentate line. The colon was decompressed, the scope was then removed from the patient who tolerated the procedure well. Bowel prep adequate Adult colonoscope Scope withdrawal time: 10 minutes Sedation minutes: 18 Complications: none Impression: Moderate diverticulosis was encountered throughout the sigmoid. There were several scattered diminutive hyperplastic appearing polyps in the rectosigmoid that were left alone. There was a 6 mm sessile polyp in the transverse colon removed with hot snare. Grade 2 nonbleeding nonthrombosed hemorrhoids were noted. Endoscopic diagnosis 1. Colon polyp 2. Diverticulosis 3. Grade 2 hemorrhoids Post-procedure Plan for aftercare: 1. Await histopathology 2. Consider repeat surveillance colonoscopy in 5 years Disposition: PACU
--- NOTE | 2021-12-15 15:33 | SUR.PHASEII ---
Pt A&O, denies pain or nausea, sitting up drinking water without problems, VSS, up and ambulating with prosthesis on now and gait steady. Pt dcd in stable condition given all dc instructions and verbalizes understanding.
== END 2021-12-15 15:34 | disposition home or self-care (01) ==
PROVIDERS: PCP Internal Medicine; Referring Provider Internal Medicine Gastroenterology; Visit Provider Internal Medicine Gastroenterology
PROC: 0DJD8ZZ Inspection of Lower Intestinal Tract, Via Natural or Artificial Opening Endoscopic (ICD-10-PCS; CPT 45378; principal; 2021-12-15 14:00)
DX: D12.3 Benign neoplasm of transverse colon (principal); K62.1 Rectal polyp; Z12.11 Encounter for screening for malignant neoplasm of colon; K57.30 Diverticulosis of large intestine without perforation or abscess without bleeding; K64.1 Second degree hemorrhoids; Z86.010 Personal history of colon polyps; Z80.0 Family history of malignant neoplasm of digestive organs
CPT/HCPCS: 45385

== ENCOUNTER → 2022-03-06 16:39 | Outpatient (CLI) | payer MEDICARE, OTHER, SELFPAY ==
[2022-03-06 17:58] LABS: Hematocrit 44.3 % (41-53); Hemoglobin 15.9 g/dL (13.5-17.5); Mean Corpuscular HGB Conc 35.8 % (30-36); Mean Corpuscular Hemoglobin 33.1 PG (26-34); Mean Corpuscular Volume 92.4 fL (80-100); Platelet Count 177 X10^3/uL (150-400); Red Cell Distribution Width 13.6 % (11.6-14.8); White Blood Cell Count 8.2 X10^3/uL (4.5-11.0)
[2022-03-06 18:34] LABS: Alanine Aminotransferase 41 IU/L (<50); Albumin 4.3 g/dL (3.5-5.0); Albumin Globulin Ratio 1.3 (1.0-2.8); Alkaline Phosphatase 115 U/L (38-126); Aspartate Aminotransferase 46 IU/L (17-59); Bilirubin Total 0.6 mg/dL (0.2-1.3); Blood Urea Nitrogen 21 mg/dL (9-20); Calcium 9.1 mg/dL (8.4-10.2); Carbon Dioxide 24 mmol/L (22-32); Chloride 106 mmol/L (98-107); Cholesterol 167 mg/dL (140-199); Estimated Glomerular Filt Rate > 60 mL/min (>60); Globulin 3.2 g/dL (1.7-4.1); Glucose 128 mg/dL (80-110); HDL Cholesterol 38 mg/dL (40-60); HEMOLYSIS 16 (0-50); Potassium 3.3 mmol/L (3.4-5.1); Sodium 140 mmol/L (137-145); Total Protein 7.5 g/dL (6.3-8.2); Triglycerides 423 mg/dL (35-150)
[2022-03-06 19:04] LABS: TSH w/ Reflex to FT4 2.03 uIU/mL (0.47-4.68)
== END ==
PROVIDERS: PCP Internal Medicine; Referring Provider Internal Medicine; Visit Provider Internal Medicine
DX: I10 Essential (primary) hypertension (principal); E78.2 Mixed hyperlipidemia; I73.9 Peripheral vascular disease, unspecified
CPT/HCPCS: 36415; 80053; 80061; 84443; 85027

== ENCOUNTER → 2023-12-09 11:40 | Outpatient (CLI) | payer MEDICARE, OTHER, SELFPAY ==
[2023-12-09 12:35] LABS: Hematocrit 43.8 % (41-53); Hemoglobin 15.3 g/dL (13.5-17.5); Mean Corpuscular HGB Conc 34.9 % (30-36); Mean Corpuscular Volume 91.9 fL (80-100); Platelet Count 145 X10^3/uL (150-400); Red Blood Cell Count 4.76 X10^6/uL (4.5-5.9); Red Cell Distribution Width 13.7 % (11.6-14.8); White Blood Cell Count 8.6 X10^3/uL (4.5-11.0)
[2023-12-09 13:03] LABS: Alanine Aminotransferase 35 IU/L (<50); Albumin 4.2 g/dL (3.5-5.0); Albumin Globulin Ratio 1.4 (1.0-2.8); Alkaline Phosphatase 117 U/L (38-126); Aspartate Aminotransferase 38 IU/L (17-59); BUN Creatinine Ratio 27.5 (6-22); Bilirubin Total 0.8 mg/dL (0.2-1.3); Blood Urea Nitrogen 19 mg/dL (9-20); Calcium 9.3 mg/dL (8.4-10.2); Carbon Dioxide 28 mmol/L (22-32); Chloride 102 mmol/L (98-107); Cholesterol 161 mg/dL (140-199); Estimated Glomerular Filt Rate > 60 mL/min (>60); Globulin 2.9 g/dL (1.7-4.1); Glucose 168 mg/dL (80-110); HDL Cholesterol 40 mg/dL (40-60); HEMOLYSIS < 15 (0-50); LDL Cholesterol Calculated 88 mg/dL (<100); Potassium 3.6 mmol/L (3.4-5.1); Sodium 135 mmol/L (137-145); Total Protein 7.1 g/dL (6.3-8.2); Triglycerides 166 mg/dL (35-150)
[2023-12-09 13:30] LABS: Prostate Specific Antigen 8.34 ng/mL (0.10-4.00)
[2023-12-09 13:34] LABS: TSH w/ Reflex to FT4 1.67 uIU/mL (0.47-4.68)
== END ==
PROVIDERS: PCP Internal Medicine; Referring Provider Internal Medicine; Visit Provider Internal Medicine
DX: R97.20 Elevated prostate specific antigen [PSA] (principal); E78.2 Mixed hyperlipidemia; I73.9 Peripheral vascular disease, unspecified
CPT/HCPCS: 36415; 80053; 80061; 84153; 84443; 85027

== ENCOUNTER → 2024-01-04 07:58 | Outpatient (CLI) | payer MEDICARE, OTHER, SELFPAY ==
--- NOTE | 2024-01-04 08:01 | DI.ECHO.S_ITS ---
[place] +---------+ Hospital +---------+ : : [address] : [address] : : : : [phone] : : : : Phone: [phone] : : [phone] +---------+ Echocardiogram Report + + :Name: MONICA SANTOS Study Date: 01/04/2024 Height: 70 in : :[facility] ReadingLocation: Weight: 180 lb : : Gender: Male BSA: 2.0 m2 : :: 1945 Age: 78 yrs BP: 135/74 mmHg: :Reason For Study: ATHEROSCLEROTIC HEART DISEASE : :Ordering Physician: SHAYY, : :MONIE Performed By: Dayanara Hand : :Referring: MONIE LUCAS : + + Interpretation Summary The study quality was technically difficult. The ejection fraction is estimated to be 55-60%. There are no obvious focal wall motion abnormalities noted but poor endocardial definition reduces the sensitivity for the detection of such. There is a bioprosthetic aortic valve. The prosthetic aortic valve is not well visualized. The peak aortic velocity is 2.6 m/sec. The peak aortic velocity on the previous exam was 2 m/sec. There is trace aortic regurgitation. The right ventricular systolic pressure is estimated to be at least 25 mmHg based on an estimated right atrial pressure of 3 mm Hg. Procedure: A two-dimensional transthoracic echocardiogram with color flow and Doppler was performed. Comparison is made with the echocardiogram of 12/01/2021. The study quality was technically difficult. The patient was in atrial fibrillation with heart rates between 58-72 bpm during the exam. Left Ventricle: The left ventricle is normal in size. Left ventricular wall thickness is mildly increased. The ejection fraction is estimated to be 55- 60%. There are no obvious focal wall motion abnormalities noted but poor endocardial definition reduces the sensitivity for the detection of such. Right Ventricle: The right ventricle is normal in size, thickness and function. Right ventricular systolic function is at the lower limits of normal. Atria: The left atrial size is normal. Right atrial size is normal. There is no Doppler evidence for an interatrial shunt. Mitral Valve: The mitral valve is normal in structure and function. There is trace mitral regurgitation. Aortic Valve: There is a bioprosthetic aortic valve. The prosthetic aortic valve is not well visualized. The peak aortic velocity is 2.6 m/sec. The aortic valve mean gradient is 16 mmHg. The peak aortic velocity on the previous exam was 2 m/sec. There is trace aortic regurgitation. Tricuspid Valve: The tricuspid valve is normal in structure and function. There is trace tricuspid regurgitation. The right ventricular systolic pressure is estimated to be at least 25 mmHg based on an estimated right atrial pressure of 3 mm Hg. Pulmonic Valve: The pulmonic valve leaflets are thin and pliable; valve motion is normal. There is mild pulmonic regurgitation. Great Vessels: The ascending aorta is moderately enlarged. The IVC is of normal diameter and collapses greater than 50% with a sniff. This suggests a low right atrial pressure of 3 mm Hg. Pericardium/ Pleura There is no pericardial effusion. There is no pleural effusion. MMode/2D Measurements & Calculations LVIDd: 4.6 cm LVOT diam: 2.0 cm LVIDs: 3.2 cm asc Aorta Diam: 4.8 cm FS: 31.7 % IVSd: 1.4 cm LVPWd: 1.0 cm LV chauhan. diameter/BSA (cm/m^2): 2.3 LV sys. diameter/BSA (cm/m^2): 1.6 LA A2 area: 16.2 cm2 RA long axis: 4.8 cm LA A4 area: 12.2 cm2 RA area: 13.8 cm2 LA length (vol): 5.0 cm RA vol: 34.0 ml LA vol: 33.4 ml RA : 17.0 ml/m2 LA vol index: 16.7 ml/m2 IVC diam: 1.1 cm RVD1 (basal): 3.3 cm TAPSE: 1.6 cm Doppler Measurements & Calculations Ao V2 max: 257.6 cm/sec LVOT Max John: 77.4 cm/sec Ao V2 mean: 187.4 cm/sec LV V1 max P.4 mmHg Ao max P.6 mmHg LV V1 VTI: 19.2 cm Ao mean P.5 mmHg GUANAKITO(I,D): 1.2 cm2 Ao V2 VTI: 52.4 cm GUANAKITO(V,D): 0.97 cm2 sev ratio: 0.37 GUANAKITO indexed to BSA (cm^2/m^2): 0.59 MV E max john: 71.3 cm/sec TR max john: 237.2 cm/sec MV A max john: 85.3 cm/sec TR max P.5 mmHg MV E/A: 0.84 PA V2 max: 86.0 cm/sec Med Peak E' John: 4.6 cm/sec PA V2 mean: 62.5 cm/sec E/E' med: 15.6 PA mean P.7 mmHg Lat Peak E' John: 7.5 cm/sec PA pr(Accel): 25.9 mmHg E/E' lat: 9.5 E/e' average: 12.6 MV dec time: 0.36 sec SV(LVOT): 61.8 ml Reading Physician:03:44 PM
== END ==
PROVIDERS: PCP Internal Medicine; Visit Provider Nurse Practitioner Family
DX: I35.0 Nonrheumatic aortic (valve) stenosis (principal); I37.1 Nonrheumatic pulmonary valve insufficiency; I25.10 Atherosclerotic heart disease of native coronary artery without angina pectoris; I77.89 Other specified disorders of arteries and arterioles; Z95.2 Presence of prosthetic heart valve
CPT/HCPCS: 93306

== ENCOUNTER → 2025-06-29 07:58 | Outpatient (CLI) | payer MEDICARE, OTHER, SELFPAY ==
--- NOTE | 2025-06-29 08:00 | DI.ECHO.S_ITS ---
[facility]+ [facility] : : [id number] : : [place] : : [id number] : : Phone: [phone] Echocardiogram Report + + :Name: MONICA SANTOS Study Date: 06/29/2025 Height: 70 in : :Hospital ReadingLocation: Weight: 180 lb : : Gender: Male BSA: 2.0 m2 : :: 1945 Age: 79 yrs BP: 162/74 mmHg: :Reason For Study: ATHEROSCLEROTIC HEART DISASE : :Ordering Physician: DANDY, : :ДМИТРИЙ Performed By: Dayanara Hand : :Referring: ДМИТРИЙ HERNANDEZ : + + Interpretation Summary The ejection fraction is estimated to be 55-60%. There are no obvious focal wall motion abnormalities noted but poor endocardial definition reduces the sensitivity for the detection of such. The aortic valve is not well visualized. There is a bioprosthetic aortic valve. The peak aortic velocity is 2.90 m/sec. The aortic valve mean gradient is 20 mmHg. The peak aortic velocity on the previous exam was 2.6 m/sec. Compared to the prior echo study, there has been an increase in the severity of aortic stenosis. There is mild aortic regurgitation. Procedure: A two-dimensional transthoracic echocardiogram with color flow and Doppler was performed. The study quality was technically difficult. Comparison is made with the echocardiogram of 01/04/2024. A contrast injection of Definity was performed to improve assessment of LV function. The patient was in sinus bradycardia with heart rates between 49-63 bpm during the exam. Left Ventricle: The left ventricle is normal in size. Left ventricular wall thickness is mildly increased. The ejection fraction is estimated to be 55- 60%. There are no obvious focal wall motion abnormalities noted but poor endocardial definition reduces the sensitivity for the detection of such. Normal diastolic function. Right Ventricle: The right ventricle is normal size. Right ventricular systolic function is at the lower limits of normal. Atria: The left atrial size is normal. Right atrial size is normal. There is no Doppler evidence for an interatrial shunt. Mitral Valve: The mitral valve leaflets appear mildly thickened. There is mild mitral regurgitation. Aortic Valve: The aortic valve is not well visualized. There is a bioprosthetic aortic valve. The peak aortic velocity is 2.90 m/sec. The aortic valve mean gradient is 20 mmHg. The peak aortic velocity on the previous exam was 2.6 m/sec. Compared to the prior echo study, there has been an increase in the severity of aortic stenosis. There is mild aortic regurgitation. Tricuspid Valve: The tricuspid valve leaflets are thin and pliable. There is trace tricuspid regurgitation. Pulmonary artery pressures cannot be estimated because of the lack of a measurable TR jet velocity but the IVC suggests a CVP of around 3 mmHg. Pulmonic Valve: The pulmonic valve is not well seen, but is grossly normal. There is no pulmonic valvular regurgitation. Great Vessels: The aortic root is normal size. The IVC is of normal diameter and collapses greater than 50% with a sniff. This suggests a low right atrial pressure of 3 mm Hg. Pericardium/ Pleura There is no pericardial effusion. There is no pleural effusion. MMode/2D Measurements & Calculations LVIDd: 4.6 cm LVOT diam: 2.1 cm LVIDs: 3.2 cm Ao root diam: 3.8 cm FS: 30.5 % asc Aorta Diam: 4.2 cm IVSd: 1.3 cm Ao Arch Diam (Prox Trans): 3.1 cm LVPWd: 0.89 cm LV chauhan. diameter/BSA (cm/m^2): 2.3 LV sys. diameter/BSA (cm/m^2): 1.6 LA A2 area: 19.4 cm2 RA long axis: 5.3 cm LA A4 area: 13.8 cm2 RA area: 15.3 cm2 LA length (vol): 4.8 cm RA vol: 37.6 ml LA vol: 47.4 ml RA : 18.8 ml/m2 LA vol index: 23.7 ml/m2 IVC diam: 0.78 cm RVD1 (basal): 3.1 cm Doppler Measurements & Calculations Ao V2 max: 290.4 cm/sec LVOT Max John: 74.2 cm/sec Ao V2 mean: 217.9 cm/sec LV V1 max P.2 mmHg Ao max P.2 mmHg LV V1 VTI: 19.8 cm Ao mean P.3 mmHg GUANAKITO(I,D): 1.0 cm2 Ao V2 VTI: 68.6 cm GUANAKITO(V,D): 0.91 cm2 sev ratio: 0.29 GUANAKITO indexed to BSA (cm^2/m^2): 0.52 MV E max john: 73.1 cm/sec PA V2 max: 75.1 cm/sec MV A max john: 89.4 cm/sec PA V2 mean: 52.2 cm/sec MV E/A: 0.82 PA mean P.3 mmHg Med Peak E' John: 4.7 cm/sec PA pr(Accel): 19.9 mmHg E/E' med: 15.6 Lat Peak E' John: 8.7 cm/sec E/E' lat: 8.4 E/e' average: 12.0 MV dec time: 0.34 sec SV(LVOT): 70.7 ml Reading Physician:12:35 PM
== END ==
PROVIDERS: PCP Internal Medicine; Referring Provider Internal Medicine; Visit Provider Internal Medicine Cardiovascular Disease
DX: I08.0 Rheumatic disorders of both mitral and aortic valves (principal); I25.118 Atherosclerotic heart disease of native coronary artery with other forms of angina pectoris
CPT/HCPCS: C8929; Q9957